=== PATIENT | male | born 1990 | race Hispanic/Latino ===

== ENCOUNTER 2025-03-04 16:24 | Emergency (ER) | payer OTHER ==
[~2025-03-04] VITALS: Ht 182.9 cm; Wt 98.9 kg
[2025-03-04 16:53] VITALS: TEMP 99.2
[2025-03-04 17:36] LABS: BASOPHILS % 0.3 % (0.0-1.0); EOSINOPHILS % 1.1 % (0.0-6.0); LYMPHOCYTES % 17.1 % (18.0-39.1); MONOCYTES % 8.0 % (4.4-11.3); NEUTROPHILS % 72.0 % (38.7-80.0); RED CELL DISTRIBUTION WIDTH 13.2 % (11.7-14.4)
[2025-03-04 17:49] LABS: EST GLOMERULAR FILTRATION RATE 103.0 ML/MIN (>=60)
[2025-03-04 18:00] VITALS: PULSE 83; RESP 15
[2025-03-04] MEDS ORDERED: IOPAMIDOL 370 MG/ML 100 ML INFUS..BTL INJ ONE (18:26)
[2025-03-04 19:05] VITALS: BP 127/90; O2SAT 100
== END 2025-03-04 19:10 | disposition left against medical advice (07) ==
LOC: ER 18:06
DX: M54.2 Cervicalgia (principal); R22.1 Localized swelling, mass and lump, neck; R51.9 Headache, unspecified
CPT/HCPCS: 36415; 80053; 85025; 99284; Q9967